=== PATIENT | female | born 1975 | race African-American/Black ===

== ENCOUNTER 2017-11-16 13:03 | Outpatient (CLI) | payer MEDICARE ==
--- NOTE | 2017-11-16 13:30 | RAD ---
CHEST TWO VIEWS: HISTORY: Dyspnea. COMPARISON: 03/08/2015 FINDINGS: The cardiac silhouette and pulmonary vasculature are unremarkable. The mediastinum is midline. Ther e is no confluent air space consolidation, pneumothorax, or pleural fluid evident. IMPRESSION: No active cardiopulmonary abnormalities demonstrated. POS: [facility]
== END 2017-11-16 13:04 | disposition home or self-care (01) ==
LOC: RAD 13:03
PROVIDERS: ATTEND Internal Medicine Pulmonary Disease
DX: R06.00 Dyspnea, unspecified (principal)
CPT/HCPCS: 71046

== ENCOUNTER 2017-11-26 19:30 | Outpatient (CLI) | payer MEDICARE | END 2017-11-26 19:31 | disposition home or self-care (01) | LOC: SLEEPLAB 19:30 | PROVIDERS: ATTEND Internal Medicine Pulmonary Disease | DX: G47.33 Obstructive sleep apnea (adult) (pediatric) (principal); G31.84 Mild cognitive impairment of uncertain or unknown etiology; R53.83 Other fatigue; F31.9 Bipolar disorder, unspecified; E66.9 Obesity, unspecified; K21.9 Gastro-esophageal reflux disease without esophagitis; R06.83 Snoring; I10 Essential (primary) hypertension | CPT/HCPCS: 95810 ==

== ENCOUNTER 2017-12-16 20:30 | Outpatient (CLI) | payer MEDICARE | END 2017-12-16 20:31 | disposition home or self-care (01) | LOC: SLEEPLAB 20:30 | PROVIDERS: ATTEND Internal Medicine Pulmonary Disease | DX: G47.33 Obstructive sleep apnea (adult) (pediatric) (principal); F31.9 Bipolar disorder, unspecified; E66.9 Obesity, unspecified; K21.9 Gastro-esophageal reflux disease without esophagitis | CPT/HCPCS: 95811 ==

== ENCOUNTER 2018-10-10 19:09 | Emergency (ER) | payer MEDICARE ==
[2018-10-10 19:51] LABS: Bilirubin Negative (Negative); Blood, Urine Trace (Negative); Clarity TURBID (Clear); Glucose, Urine (Dipstick) Negative (Negative); Leukocyte Large (Negative); Nitrite Negative (Negative); Protein, Urine (Dipstick) Trace mg/dL (Neg-Trace); Specific Gravity, Urine 1.024 (1.002-1.036)
[2018-10-10 19:53] LABS: Bacteria/HPF 3+ HPF (None Seen); Pathc Cast-AUWi Flag 2.32 (0-2.49); RBC/HPF 0-3 HPF (0-3); Squamous Epithelial 21-50 HPF (0-3)
[2018-10-10 19:56] LABS: Hyaline Casts/LPF 0-3 HYALINE CAST LPF (0-3 Hyaline)
[2018-10-10 20:12] LABS: #Eosinphils 0.2 thou/uL (0.0-0.7); #Lymphocytes 2.4 thou/uL (1.20-3.40); #Monocytes 0.5 thou/uL (0.11-0.59); #Neutrophils 3.2 thou/uL (1.40-6.50); %Basophils 0.3 % (0.0-1.0); %Eosinophils 3.1 % (0.0-10.0); %Lymphocytes 38.3 % (21.0-51.0); %Monocytes 7.6 % (0.0-10.0); %Neutrophils 50.8 % (42.0-75.0); Hemoglobin 12.2 g/dL (12.0-16.0); Mean Corpuscular HGB CONC 32.9 g/dL (32.0-36.0); Mean Corpuscular Hemoglobin 26.3 pg (27.0-31.0); Mean Corpuscular Volume 80.2 fL (78.0-98.0); Mean Platelet Volume 6.9 fL (7.4-10.4); Platelet Count 345 thou/uL (130-400); RBC Distribution Width 14.1 % (11.5-14.5); Red Blood Cell (RBC) Count 4.65 mill/uL (4.20-5.40); White Blood Cell (WBC) Count 6.3 thou/uL (4.8-10.8)
[2018-10-10 20:27] LABS: ALT (SGPT) 14 U/L (8-55); AST (SGOT) 15 U/L (5-34); Albumin 3.9 g/dL (3.5-5.0); Alkaline Phosphatase 90 U/L (40-150); Anion Gap 13 mmol/L (10-20); BUN (Urea Nitrogen) 12 mg/dL (7.0-18.7); Bilirubin, Total Less than 0.2 mg/dL (0.2-1.2); Calc. Creatinine Clearance 0 mL/min (70-130); Calcium 9.6 mg/dL (7.8-10.44); Carbon Dioxide 25 mmol/L (22-29); Chloride 107 mmol/L (98-107); Estimated GFR-MDRD Greater than 90; Globulin 3.4 g/dL (2.4-3.5); Glucose 123 mg/dL (70-105); Potassium 3.8 mmol/L (3.5-5.1); Protein, Total 7.3 g/dL (6.0-8.3); Sodium 141 mmol/L (136-145)
== END 2018-10-10 20:15 | disposition home or self-care (01) ==
LOC: ERS 19:09
DX: N39.0 Urinary tract infection, site not specified (principal); J45.909 Unspecified asthma, uncomplicated; F31.9 Bipolar disorder, unspecified; F20.9 Schizophrenia, unspecified; Z79.899 Other long term (current) drug therapy
CPT/HCPCS: 36415; 80053; 81003; 81015; 85025; 99284

== ENCOUNTER 2018-10-28 07:46 | Emergency (ER) | payer MEDICARE, SELFPAY ==
[2018-10-28] MEDS ORDERED: Ondansetron PF 4 MG/2 ML Vial ONE (08:04)
[2018-10-28] MEDS ORDERED: Ketorolac Tromethamine 30 MG/ML VIAL ONE (08:04)
[2018-10-28 08:22] LABS: #Eosinphils 0.1 thou/uL (0.0-0.7); #Lymphocytes 2.6 thou/uL (1.20-3.40); #Monocytes 0.4 thou/uL (0.11-0.59); #Neutrophils 3.4 thou/uL (1.40-6.50); %Basophils 0.5 % (0.0-1.0); %Eosinophils 1.4 % (0.0-10.0); %Lymphocytes 40.2 % (21.0-51.0); %Monocytes 6.1 % (0.0-10.0); %Neutrophils 51.8 % (42.0-75.0); Hemoglobin 13.1 g/dL (12.0-16.0); Mean Corpuscular Volume 78.9 fL (78.0-98.0); Mean Platelet Volume 7.2 fL (7.4-10.4); Platelet Count 381 thou/uL (130-400); RBC Distribution Width 14.3 % (11.5-14.5); Red Blood Cell (RBC) Count 5.03 mill/uL (4.20-5.40); White Blood Cell (WBC) Count 6.5 thou/uL (4.8-10.8)
[2018-10-28 08:44] LABS: ALT (SGPT) 17 U/L (8-55); AST (SGOT) 16 U/L (5-34); Albumin 4.3 g/dL (3.5-5.0); Alkaline Phosphatase 100 U/L (40-150); Anion Gap 13 mmol/L (10-20); BUN (Urea Nitrogen) 13 mg/dL (7.0-18.7); Bilirubin, Total 0.3 mg/dL (0.2-1.2); Calc. Creatinine Clearance 0 mL/min (70-130); Calcium 10.6 mg/dL (7.8-10.44); Carbon Dioxide 24 mmol/L (22-29); Chloride 104 mmol/L (98-107); Estimated GFR-MDRD 80; Globulin 3.8 g/dL (2.4-3.5); Glucose 130 mg/dL (70-105); Lipase 18 U/L (8-78); Potassium 4.2 mmol/L (3.5-5.1); Protein, Total 8.1 g/dL (6.0-8.3); Sodium 137 mmol/L (136-145)
--- NOTE | 2018-10-28 09:26 | CT ---
CT OF ABDOMEN AND PELVIS: DATE: 10/28/2018. COMPARISON: 06/22/2018. HISTORY: Abdominal pain with vomiting and diarrhea. TECHNIQUE: Axial CT imaging at 5 mm intervals from lung bases through pubic symphysis with IV contrast. Coronal reformatted imaging obtained. FINDINGS: The lack of oral contrast limits assessment of the bowel. The imaged lung bases appear unremarkable. There is no free intraperitoneal air. There are cholecystectomy clips present. The liver, spleen, pancreas, adrenal glands, and kidneys appear grossly unremarkable. There is a rim enhancing low density centrally low density structure measuring 1.3 cm in the left hem ipelvis, likely ovarian/adnexal in nature. The uterus is nonvisualized suggesting surgical absence. There is diverticulosis of the descending colon. The appendix appears normal. No evidence for a large or small bowel obstruction. Small sliding-type hiatal hernia. There is small volume fluid within the stomach. There is fluid seen within multiple nondilated loops of small bowel. Thee is fecal material seen in mid small bowel on axial image 51, nonspecific. There is no acute osseous abnormality seen. There i s lower lumbar spine facet hypertrophic change. IMPRESSION: Fluid is seen within nondilated small bowel and in the stomach. There is probable small volume fecal material within nondilated small bowel within the mid abdomen. Findings can be seen on the basis of ileus or early obstructive process. No evidence for a high-grade small bowel obstruction seen at th is point, and there is no free intraperitoneal air or evidence for appendicitis. If symptoms persist , followup imaging advised. POS: [facility]
[2018-10-28] MEDS ORDERED: Fentanyl 100 MCG/2 ML VIAL ONE (09:52)
[2018-10-28] MEDS ORDERED: ISOVUE-370 76%-LOCM 1 ML ONE (11:31)
== END 2018-10-28 11:20 | disposition home or self-care (01) ==
LOC: ERS 07:46
DX: R10.9 Unspecified abdominal pain (principal); F31.9 Bipolar disorder, unspecified; F25.9 Schizoaffective disorder, unspecified; J45.909 Unspecified asthma, uncomplicated; Z79.899 Other long term (current) drug therapy
CPT/HCPCS: 74177; 80053; 83690; 85025; 96361; 96374; 96375; J1885; J2405; J3010

== ENCOUNTER 2019-05-17 21:30 | Emergency (ER) | payer MEDICARE ==
[2019-05-17 22:07] LABS: Bilirubin Negative (Negative); Blood, Urine Trace (Negative); Clarity Clear (Clear); Glucose, Urine (Dipstick) Normal (Negative); Leukocyte Negative Leu/uL (Negative); Nitrite Negative (Negative); Protein, Urine (Dipstick) 10 mg/dL (Neg-Trace); RBC/HPF 0-3 HPF (0-3); Squamous Epithelial 0-3 HPF (0-3); Urobilinogen Normal mg/dL (Less than 2); WBC/HPF 0-3 HPF (0-3)
[2019-05-17 22:09] LABS: Bacteria/HPF 1+ HPF (None Seen)
[2019-05-17 22:11] LABS: #Eosinphils 0.2 thou/uL (0.0-0.7); #Lymphocytes 2.4 thou/uL (1.20-3.40); #Monocytes 0.8 thou/uL (0.11-0.59); %Basophils 0.2 % (0.0-1.0); %Eosinophils 1.9 % (0.0-10.0); %Lymphocytes 28.5 % (21.0-51.0); %Monocytes 9.8 % (0.0-10.0); %Neutrophils 59.7 % (42.0-75.0); Hemoglobin 12.2 g/dL (12.0-16.0); Mean Corpuscular HGB CONC 33.1 g/dL (32.0-36.0); Mean Corpuscular Hemoglobin 26.3 pg (27.0-31.0); Mean Corpuscular Volume 79.4 fL (78.0-98.0); Mean Platelet Volume 7.2 fL (7.4-10.4); Platelet Count 367 thou/uL (130-400); Red Blood Cell (RBC) Count 4.63 mill/uL (4.20-5.40); White Blood Cell (WBC) Count 8.3 thou/uL (4.8-10.8)
--- NOTE | 2019-05-17 22:13 | RAD ---
TWO VIEWS CHEST: 05/17/19 HISTORY: Asthma attack, cough. FINDINGS: Lungs are clear. Heart and mediastinal contours are unremarkable. IMPRESSION: No acute findings. POS: [facility]
[2019-05-17] MEDS ORDERED: Ondansetron PF 4 MG/2 ML Vial ONE (22:22)
[2019-05-17 22:40] LABS: ALT (SGPT) 13 U/L (8-55); AST (SGOT) 12 U/L (5-34); Albumin 4.2 g/dL (3.5-5.0); Alkaline Phosphatase 96 U/L (40-150); Anion Gap 13 mmol/L (10-20); BUN (Urea Nitrogen) 12 mg/dL (7.0-18.7); Bilirubin, Total 0.2 mg/dL (0.2-1.2); Calc. Creatinine Clearance 0 mL/min (70-130); Calcium 10.1 mg/dL (7.8-10.44); Carbon Dioxide 26 mmol/L (22-29); Chloride 102 mmol/L (98-107); Estimated GFR-MDRD 90; Globulin 3.9 g/dL (2.4-3.5); Glucose 92 mg/dL (70-105); Lipase 17 U/L (8-78); Potassium 4.2 mmol/L (3.5-5.1); Protein, Total 8.1 g/dL (6.0-8.3); Sodium 137 mmol/L (136-145)
--- NOTE | 2019-05-17 23:49 | CT ---
CT ABDOMEN AND PELVIS: 05/17/19 COMPARISON: 10/28/18. HISTORY: Abdominal pain. TECHNIQUE: Axial CT imaging at 5 mm intervals from lung bases through pubic symphysis with IV contrast. Coronal reformatted imaging obtained. FINDINGS: The imaged lung bases are unremarkable. No free intraperitoneal air or fluid is seen. Cholecystectomy clips are present. The liver, spleen, pancreas, adrenal glands, and kidneys are unremarkable. There is diverticulosis of the sigmoid colon and descending colon with no evidence for diverticulitis . No evidence for bowel inflammatory change or obstruction. The appendix is normal. The vascular structures of the abdomen and pelvis are unremarkable. No lymphadenopathy is noted withi n the abdomen or pelvis. Review of the osseous structures demonstrates no acute findings. IMPRESSION: No acute findings. POS: [facility]
[2019-05-18] MEDS ORDERED: Ketorolac Tromethamine 30 MG/ML VIAL ONE (00:01)
== END 2019-05-18 00:46 | disposition home or self-care (01) ==
LOC: ERS 21:30
DX: R10.32 Left lower quadrant pain (principal); J20.9 Acute bronchitis, unspecified; R11.2 Nausea with vomiting, unspecified; R10.12 Left upper quadrant pain; J45.909 Unspecified asthma, uncomplicated; F31.9 Bipolar disorder, unspecified; F25.9 Schizoaffective disorder, unspecified
CPT/HCPCS: 36415; 71046; 74177; 80053; 81003; 81015; 83690; 85025; 96361; 96374; 96375; J1885; J2405

== ENCOUNTER 2019-08-22 20:00 | Emergency (ER) | payer MEDICARE | END 2019-08-22 20:47 | disposition left against medical advice (07) | LOC: ERS 20:00 | DX: Z53.21 Procedure and treatment not carried out due to patient leaving prior to being seen by health care provider (principal) ==

== ENCOUNTER 2019-11-09 12:40 | Outpatient (CLI) | payer MEDICARE ==
--- NOTE | 2019-11-09 15:47 | MMO ---
Bilateral MAMMO Bilat Screen [facility]. CLINICAL HISTORY: Patient is 44 years old and is seen for screening. The patient has the following family history of breast cancer: mother, malignant (generic). The patient has no personal history of cancer. The patient has a history of bilateral Breast reduction in 1996 - benign. VIEWS: The views performed were: bilateral mediolateral oblique with tomosynthesis; bilateral craniocaudal with tomosynthesis; left craniocaudal; and right mediolateral oblique. FILMS COMPARED: The present examination has been compared to prior imaging studies performed at [facility] on 09/22/2016 and 11/07/2018. This study has been interpreted with the assistance of computer-aided detection. MAMMOGRAM FINDINGS: The breasts are almost entirely fat. There are benign appearing calcifications seen in both breasts. There are no suspicious masses, suspicious calcifications, or new areas of architectural distortion. IMPRESSION: THERE IS NO MAMMOGRAPHIC EVIDENCE OF MALIGNANCY. A ROUTINE FOLLOW-UP MAMMOGRAM IN 1 YEAR IS RECOMMENDED. THE RESULTS OF THIS EXAM WERE SENT TO THE PATIENT. ACR BI-RADS Category 2 - Benign finding MAMMOGRAPHY NOTE: 1. A negative mammogram report should not delay a biopsy if a dominant of clinically suspicious mass is present. 2. Approximately 10% to 15% of breast cancers are not detected by mammography. 3. Adenosis and dense breasts may obscure an underlying neoplasm. Reported by: HELEN PATE MD Electonically Signed: [id number]
== END 2019-11-09 12:41 | disposition home or self-care (01) ==
LOC: BICMAMMO 12:40
PROVIDERS: ATTEND Family Medicine
DX: Z12.31 Encounter for screening mammogram for malignant neoplasm of breast (principal); Z80.3 Family history of malignant neoplasm of breast; Z98.890 Other specified postprocedural states
CPT/HCPCS: 77063; 77067

== ENCOUNTER 2020-06-25 10:29 | Outpatient (CLI) | payer MEDICARE ==
--- NOTE | 2020-06-25 10:41 | RAD ---
EXAM: Chest PA and lateral: HISTORY: Pneumonia COMPARISON: 05/17/2019 FINDINGS: Heart: Normal cardiac silhouette Aorta: Unremarkable Pulmonary vessels: Normal Costophrenic angles: Costophrenic angles are clear. Lungs: No consolidation or masses. Pneumothorax: No pneumothorax Osseous structures: No osseous abnormalities IMPRESSION: No acute cardiopulmonary process.
== END 2020-06-25 10:30 | disposition home or self-care (01) ==
LOC: BICRAD 10:29
PROVIDERS: ATTEND Family Medicine
DX: J18.9 Pneumonia, unspecified organism (principal)
CPT/HCPCS: 71046

== ENCOUNTER 2020-08-15 12:55 | Outpatient (CLI) | payer MEDICARE ==
--- NOTE | 2020-08-15 13:24 | RAD ---
EXAM: Chest PA and lateral: HISTORY: Dyspnea COMPARISON: 06/25/2020 FINDINGS: Heart: Normal cardiac silhouette Aorta: Unremarkable Pulmonary vessels: Normal Costophrenic angles: Costophrenic angles are clear. Lungs: No consolidation or masses. Pneumothorax: No pneumothorax Osseous structures: No osseous abnormalities IMPRESSION: No acute cardiopulmonary process.
== END 2020-08-15 12:56 | disposition home or self-care (01) ==
LOC: BICRAD 12:55
PROVIDERS: ATTEND Internal Medicine Pulmonary Disease
DX: R06.00 Dyspnea, unspecified (principal)
CPT/HCPCS: 71046

== ENCOUNTER 2021-06-27 22:36 | Inpatient (IN) | payer MEDICARE ==
[2021-06-28 00:55] VITALS: BMI 38.4
[2021-06-28] MEDS ORDERED: Ondansetron ODT 4 MG TAB PO PRN (01:12)
[2021-06-28] MEDS ORDERED: Acetaminophen 650 MG Suppository PR PRN (01:12)
[2021-06-28] MEDS ORDERED: Dextrose 50% Abboject 50 ML SYRINGE SLOW IVP PRN (01:40)
[2021-06-28] MEDS ORDERED: Dextrose 5% in Water 1,000 ML IV PRN (01:40)
[2021-06-28] MEDS ORDERED: HumaLOG 300 UNITS/3 ML VIAL SC PRN ×2 (01:40)
[2021-06-28] MEDS ORDERED: Piperacillin/Tazobactam 3.375 GM in Sodium Chloride 0.9% 100 ML IVPB SCH ×2 (02:00→10:00)
[2021-06-28] MEDS: Sodium Chloride 0.9% 1,000 ML IV SCH ×3 (02:05→21:27)
[2021-06-28] MEDS: Piperacillin/Tazobactam 3.375 GM in Sodium Chloride 0.9% 100 ML IVPB SCH ×3 (05:41→21:28)
[2021-06-28 05:55] LABS: #Eosinphils 0.1 thou/uL (0.0-0.7); #Lymphocytes 2.5 thou/uL (1.20-3.40); #Monocytes 0.8 thou/uL (0.11-0.59); #Neutrophils 8.3 thou/uL (1.40-6.50); %Basophils 0.1 % (0.0-1.0); %Eosinophils 1.2 % (0.0-10.0); %Lymphocytes 21.1 % (21.0-51.0); %Monocytes 6.7 % (0.0-10.0); %Neutrophils 70.9 % (42.0-75.0); Hemoglobin 10.7 g/dL (12.0-16.0); Mean Corpuscular HGB CONC 31.9 g/dL (32.0-36.0); Mean Corpuscular Hemoglobin 25.8 pg (27.0-31.0); Mean Corpuscular Volume 80.9 fL (78.0-98.0); Mean Platelet Volume 7.4 fL (7.4-10.4); Platelet Count 374 thou/uL (130-400); RBC Distribution Width 15.3 % (11.5-14.5); Red Blood Cell (RBC) Count 4.13 mill/uL (4.20-5.40); White Blood Cell (WBC) Count 11.6 thou/uL (4.8-10.8)
[2021-06-28 06:03] LABS: Hemoglobin A1c 6.8 % (4.0-6.0)
[2021-06-28 06:17] LABS: Anion Gap 13 mmol/L (10-20); BUN (Urea Nitrogen) 10 mg/dL (7.0-18.7); Calc. Creatinine Clearance 131 mL/min (70-130); Calcium 9.3 mg/dL (7.8-10.44); Carbon Dioxide 22 mmol/L (22-29); Chloride 104 mmol/L (98-107); Glucose 133 mg/dL (70-105); Potassium 4.2 mmol/L (3.5-5.1); Sodium 135 mmol/L (136-145)
[2021-06-28] MEDS: Pantoprazole 40 MG VIAL IVP SCH (08:10)
[2021-06-28] MEDS ORDERED: Iopamidol 370 76% 50 ML VIAL FS ONE (11:37)
[2021-06-28] MEDS ORDERED: Iopamidol-370 76% 500 ML 1 ML ONE (11:37)
[2021-06-28] MEDS: Acetaminophen 325 MG TAB PO PRN (16:21)
[2021-06-29] MEDS: Acetaminophen 325 MG TAB PO PRN ×2 (03:48→20:49)
[2021-06-29] MEDS: Ondansetron PF 4 MG/2 ML Vial IVP PRN (03:48)
[2021-06-29] MEDS: Piperacillin/Tazobactam 3.375 GM in Sodium Chloride 0.9% 100 ML IVPB SCH ×3 (04:57→20:40)
[2021-06-29] MEDS: Pantoprazole 40 MG VIAL IVP SCH (08:57)
[2021-06-29] MEDS: Ketorolac Tromethamine 30 MG/ML VIAL IVP PRN (14:57)
[2021-06-29] MEDS: Sodium Chloride 0.9% 1,000 ML IV SCH ×2 (17:31→18:58)
[2021-06-30] MEDS: Ondansetron PF 4 MG/2 ML Vial IVP PRN ×2 (04:55→21:10)
[2021-06-30] MEDS: Acetaminophen 325 MG TAB PO PRN (04:55)
[2021-06-30] MEDS: Piperacillin/Tazobactam 3.375 GM in Sodium Chloride 0.9% 100 ML IVPB SCH ×3 (04:56→21:06)
[2021-06-30] MEDS: Sodium Chloride 0.9% 1,000 ML IV SCH ×3 (05:48→21:06)
[2021-06-30] MEDS: Pantoprazole 40 MG VIAL IVP SCH (08:38)
[2021-06-30 09:00] LABS: #Eosinphils 0.1 thou/uL (0.0-0.7); #Lymphocytes 2.5 thou/uL (1.20-3.40); #Monocytes 0.7 thou/uL (0.11-0.59); #Neutrophils 7.7 thou/uL (1.40-6.50); %Eosinophils 1.3 % (0.0-10.0); %Lymphocytes 22.6 % (21.0-51.0); %Monocytes 6.1 % (0.0-10.0); Hemoglobin 10.5 g/dL (12.0-16.0); Mean Corpuscular HGB CONC 32.6 g/dL (32.0-36.0); Mean Corpuscular Hemoglobin 26.1 pg (27.0-31.0); Mean Corpuscular Volume 80.1 fL (78.0-98.0); Mean Platelet Volume 7.1 fL (7.4-10.4); Platelet Count 429 thou/uL (130-400); RBC Distribution Width 15.1 % (11.5-14.5); Red Blood Cell (RBC) Count 4.01 mill/uL (4.20-5.40)
[2021-06-30] MEDS: Ketorolac Tromethamine 30 MG/ML VIAL IVP PRN ×2 (12:52→21:10)
[2021-07-01] MEDS: Piperacillin/Tazobactam 3.375 GM in Sodium Chloride 0.9% 100 ML IVPB SCH (05:34)
[2021-07-01] MEDS: Pantoprazole 40 MG VIAL IVP SCH (08:01)
[2021-07-01] MEDS ORDERED: Fluticasone Propionate HFA 110 MCG AER INH PRN (09:10)
[2021-07-01] MEDS ORDERED: Non-Formulary Item 1 EACH (Albuterol Sulfate 200 PUFF Aer) PO PRN (09:10)
[2021-07-01] MEDS ORDERED: Albuterol Sulfate 1.25 MG/3 ML NEB NEB PRN (09:10)
[2021-07-01] MEDS ORDERED: Albuterol 200 PUFF (6.7GM INHALER) INH PRN (09:20)
[2021-07-01] MEDS: Acetaminophen 325 MG TAB PO PRN (11:58)
[2021-07-01 12:21] VITALS: BP 156/87; TEMP 98.7
[2021-07-01] MEDS ORDERED: PERPHENAZINE 4 MG PO SCH (21:00)
[2021-07-01] MEDS ORDERED: Perphenazine 2 MG TAB PO SCH (21:00)
[2021-07-01] MEDS ORDERED: lamoTRIgine 25 MG TAB PO SCH (21:00)
[2021-07-02] MEDS ORDERED: metFORMIN 500 MG TAB PO SCH ×2 (09:00)
[2021-07-02] MEDS ORDERED: busPIRone HCl 5 MG TAB PO SCH (09:00)
[2021-07-02] MEDS ORDERED: Non-Formulary Item 1 EACH (Buspirone Hcl [Buspirone Hcl] 7.5 MG Tablet) PO SCH (09:00)
[2021-07-02] MEDS ORDERED: Citalopram 10 MG TAB PO SCH (09:00)
== END 2021-07-01 12:34 | disposition home or self-care (01) | DRG 373 ==
LOC: SURG A 06-28 00:16
PROVIDERS: ADMIT Student in an Organized Health Care Education/Training Program; ATTEND Internal Medicine
DX: K65.1 Peritoneal abscess (principal); N83.8 Other noninflammatory disorders of ovary, fallopian tube and broad ligament; F25.9 Schizoaffective disorder, unspecified; E11.9 Type 2 diabetes mellitus without complications; J45.909 Unspecified asthma, uncomplicated; Z20.822 Contact with and (suspected) exposure to COVID-19; E66.01 Morbid (severe) obesity due to excess calories; Z88.5 Allergy status to narcotic agent; Z79.899 Other long term (current) drug therapy; Z79.51 Long term (current) use of inhaled steroids; Z79.84 Long term (current) use of oral hypoglycemic drugs; Z90.710 Acquired absence of both cervix and uterus; Z68.38 Body mass index [BMI] 38.0-38.9, adult; Z90.49 Acquired absence of other specified parts of digestive tract; Z98.51 Tubal ligation status; Z84.1 Family history of disorders of kidney and ureter; Z82.49 Family history of ischemic heart disease and other diseases of the circulatory system; Z83.3 Family history of diabetes mellitus
CPT/HCPCS: 36415; 36416; 74177; 80048; 83036; 85025; 86304; C9113; J1885; J2405; J2543; J3490; J7050; Q0162; Q9967

== ENCOUNTER 2021-08-13 21:17 | Inpatient (IN) | payer MEDICARE ==
[2021-08-13 22:40] VITALS: BMI 42.5
[2021-08-13] MEDS ORDERED: Acetaminophen 650 MG Suppository PR PRN (23:35)
[2021-08-13] MEDS ORDERED: Ondansetron PF 4 MG/2 ML Vial IVP PRN (23:35)
[2021-08-13] MEDS ORDERED: Ondansetron ODT 4 MG TAB PO PRN (23:35)
[2021-08-14] MEDS ORDERED: HumaLOG 300 UNITS/3 ML VIAL SC PRN ×2 (00:21)
[2021-08-14] MEDS ORDERED: Dextrose 50% Abboject 50 ML SYRINGE SLOW IVP PRN (00:21)
[2021-08-14] MEDS ORDERED: Dextrose 5% in Water 1,000 ML IV PRN (00:21)
[2021-08-14] MEDS ORDERED: Sodium Chloride 0.9% 1,000 ML IV SCH (00:45)
[2021-08-14] MEDS ORDERED: Piperacillin/Tazobactam 3.375 GM in Sodium Chloride 0.9% 100 ML IVPB SCH ×2 (02:00→06:00)
[2021-08-14] MEDS: Piperacillin/Tazobactam 3.375 GM in Sodium Chloride 0.9% 100 ML IVPB SCH ×3 (05:35→21:31)
[2021-08-14] MEDS: Acetaminophen 325 MG TAB PO PRN ×2 (05:36→18:51)
[2021-08-14 06:03] LABS: #Eosinphils 0.1 thou/uL (0.0-0.7); #Monocytes 0.5 thou/uL (0.11-0.59); #Neutrophils 8.2 thou/uL (1.40-6.50); %Basophils 0.1 % (0.0-1.0); %Eosinophils 0.9 % (0.0-10.0); %Lymphocytes 18.3 % (21.0-51.0); %Monocytes 4.8 % (0.0-10.0); %Neutrophils 75.9 % (42.0-75.0); Mean Corpuscular HGB CONC 30.1 g/dL (32.0-36.0); Mean Corpuscular Hemoglobin 23.6 pg (27.0-31.0); Mean Corpuscular Volume 78.5 fL (78.0-98.0); Mean Platelet Volume 6.5 fL (7.4-10.4); Platelet Count 484 thou/uL (130-400); RBC Distribution Width 15.1 % (11.5-14.5); Red Blood Cell (RBC) Count 3.81 mill/uL (4.20-5.40); White Blood Cell (WBC) Count 10.8 thou/uL (4.8-10.8)
[2021-08-14 06:23] LABS: Anion Gap 14 mmol/L (10-20); BUN (Urea Nitrogen) 7 mg/dL (7.0-18.7); Calc. Creatinine Clearance 135 mL/min (70-130); Carbon Dioxide 25 mmol/L (22-29); Chloride 106 mmol/L (98-107); Glucose 153 mg/dL (70-105); Sodium 141 mmol/L (136-145)
[2021-08-14] MEDS ORDERED: Enoxaparin Sodium 40 MG/0.4 ML SYRINGE SC SCH ×2 (09:00→21:00)
[2021-08-14] MEDS: Sodium Chloride 0.9% 1,000 ML IV SCH (13:00)
[2021-08-14] MEDS ORDERED: Albuterol Sulfate 1.25 MG/3 ML NEB NEB PRN (17:14)
[2021-08-14] MEDS ORDERED: Mometasone 100 MCG/PUFF (1 INHALER) INH PRN (17:24)
[2021-08-14] MEDS ORDERED: Citalopram 10 MG TAB PO SCH (21:00)
[2021-08-14] MEDS ORDERED: busPIRone HCl 5 MG TAB PO SCH (21:00)
[2021-08-14] MEDS: Perphenazine 2 MG TAB PO SCH (21:31)
[2021-08-14] MEDS: lamoTRIgine 25 MG TAB PO SCH (21:31)
[2021-08-14] MEDS ORDERED: HYDROcodone/Acetaminophen 5/325 mg Tablet PO PRN (22:52)
[2021-08-15] MEDS: Piperacillin/Tazobactam 3.375 GM in Sodium Chloride 0.9% 100 ML IVPB SCH ×2 (05:41→14:15)
[2021-08-15 07:28] VITALS: TEMP 98.5
[2021-08-15] MEDS: lamoTRIgine 25 MG TAB PO SCH (08:56)
[2021-08-15] MEDS: Acetaminophen 325 MG TAB PO PRN (08:56)
[2021-08-15] MEDS: Sodium Chloride 0.9% 1,000 ML IV SCH (08:59)
[2021-08-15] MEDS: Perphenazine 2 MG TAB PO SCH (09:44)
[2021-08-15 11:02] VITALS: BP 112/70
== END 2021-08-15 15:26 | disposition home or self-care (01) | DRG 872 ==
LOC: SURG B 21:17 → UNDOADMOB 21:17 → SURG B 22:16 → OBSVTOIN 23:35
PROVIDERS: ADMIT Student in an Organized Health Care Education/Training Program; ATTEND Internal Medicine
DX: A41.9 Sepsis, unspecified organism (principal); Z68.41 Body mass index [BMI] 40.0-44.9, adult; N13.30 Unspecified hydronephrosis; E66.01 Morbid (severe) obesity due to excess calories; D30.22 Benign neoplasm of left ureter; N70.93 Salpingitis and oophoritis, unspecified; N73.9 Female pelvic inflammatory disease, unspecified; F25.9 Schizoaffective disorder, unspecified; E11.9 Type 2 diabetes mellitus without complications; I10 Essential (primary) hypertension; J45.909 Unspecified asthma, uncomplicated; Z88.5 Allergy status to narcotic agent; Z79.84 Long term (current) use of oral hypoglycemic drugs; Z79.51 Long term (current) use of inhaled steroids; Z79.899 Other long term (current) drug therapy; Z90.710 Acquired absence of both cervix and uterus; Z98.51 Tubal ligation status
CPT/HCPCS: 36415; 36416; 80048; 85025; J1650; J2543; J3490; J7050; Q0175

== ENCOUNTER 2021-09-18 10:54 | Outpatient (CLI) | payer MEDICARE ==
[2021-09-18 11:38] LABS: Estimated GFR-MDRD - POC Greater than 90
== END 2021-09-18 10:55 | disposition home or self-care (01) ==
LOC: SCSMRI 10:54
DX: R19.00 Intra-abdominal and pelvic swelling, mass and lump, unspecified site (principal); R68.81 Early satiety; Z80.41 Family history of malignant neoplasm of ovary; K59.09 Other constipation
CPT/HCPCS: 72197; 82565

== ENCOUNTER 2022-06-29 11:54 | Outpatient (CLI) | payer MEDICARE | END 2022-06-29 11:55 | disposition home or self-care (01) | LOC: BICMAMMO 11:54 | PROVIDERS: ATTEND Family Medicine | DX: Z12.31 Encounter for screening mammogram for malignant neoplasm of breast (principal); Z80.3 Family history of malignant neoplasm of breast; Z98.890 Other specified postprocedural states | CPT/HCPCS: 77063; 77067 ==

== ENCOUNTER 2025-05-13 16:31 | Inpatient (IN) | payer MEDICARE, BC ==
[~2025-05-13 16:31] MED LIST: Iopamidol-370 76% 500 ML MDV (1 ML CHARGE) ONE
[2025-05-13 17:35] LABS: #Basophils Less than 0.03 10x3/uL (0.0-0.2); #Eosinophils 0.14 10x3/uL (0.0-0.7); #Monocytes 0.40 10x3/uL (0.11-0.59); #Neutrophils 4.37 10x3/uL (1.40-6.50); %Basophils 0.3 % (0.0-1.0); %Eosinophils 2.1 % (0.0-10.0); %Lymphocytes 27.6 % (21.0-51.0); %Monocytes 5.9 % (0.0-10.0); %Neutrophils 64.0 % (42.0-75.0); Hematocrit 37.6 % (36.0-47.0); Hemoglobin 12.1 g/dL (12.0-16.0); Mean Corpuscular Hemoglobin 25.6 pg (27.0-31.0); Mean Corpuscular Volume 79.7 fL (78.0-98.0); Platelet Count 342 10x3/uL (130-400); Red Blood Cell (RBC) Count 4.72 mill/uL (4.20-5.40); White Blood Cell (WBC) Count 6.82 10x3/uL (4.8-10.8)
[2025-05-13 17:54] LABS: ALT (SGPT) 16 U/L (Less than 34); AST (SGOT) 18 U/L (11-34); Albumin 4.0 g/dL (3.1-4.5); Alkaline Phosphatase 111 U/L (40-110); Anion Gap 12 mmol/L (10-20); BUN (Urea Nitrogen) 10 mg/dL (9.8-20.1); Bilirubin, Total 0.2 mg/dL (0.3-1.2); Calc. Creatinine Clearance 0 mL/min (70-130); Calcium 9.7 mg/dL (7.8-10.44); Carbon Dioxide 23 mmol/L (22-29); Chloride 107 mmol/L (98-107); Globulin 3.9 g/dL (2.4-3.5); Glucose 165 mg/dL (70-105); Potassium 4.0 mmol/L (3.5-5.1); Sodium 138 mmol/L (136-145)
[2025-05-13 17:57] LABS: Troponin I Less than 0.010 ng/mL (< 0.028)
[2025-05-13] MEDS ORDERED: HYDROcodone/Acetaminophen 5/325 mg Tablet ONE (18:02)
[2025-05-13] MEDS ORDERED: Aspirin Chewable 81 MG TAB ONE (20:44)
[2025-05-13] MEDS ORDERED: Acetaminophen 325 MG TAB PO PRN (21:15)
[2025-05-13] MEDS ORDERED: Ondansetron PF 4 MG/2 ML Vial IVP PRN (21:15)
[2025-05-13] MEDS ORDERED: cloNIDine 0.1 MG TAB PO PRN (22:09)
[2025-05-13] MEDS ORDERED: Glucagon 1 MG/ML KIT IM PRN (23:08)
[2025-05-13] MEDS ORDERED: Dextrose 50% Abboject 50 ML SYRINGE SLOW IVP PRN (23:08)
[2025-05-13 23:21] VITALS: BMI 41.7
[2025-05-14 06:03] LABS: Anion Gap 15 mmol/L (10-20); BUN (Urea Nitrogen) 10 mg/dL (9.8-20.1); Calc. Creatinine Clearance 168 mL/min (70-130); Calcium 9.3 mg/dL (7.8-10.44); Carbon Dioxide 19 mmol/L (22-29); Chloride 107 mmol/L (98-107); Glucose 102 mg/dL (70-105); Potassium 4.3 mmol/L (3.5-5.1); Sodium 137 mmol/L (136-145)
[2025-05-14 07:35] LABS: #Basophils 0.03 10x3/uL (0.0-0.2); #Eosinophils 0.22 10x3/uL (0.0-0.7); #Monocytes 0.51 10x3/uL (0.11-0.59); #Neutrophils 3.07 10x3/uL (1.40-6.50); %Basophils 0.4 % (0.0-1.0); %Eosinophils 3.3 % (0.0-10.0); %Lymphocytes 42.0 % (21.0-51.0); %Monocytes 7.6 % (0.0-10.0); %Neutrophils 46.1 % (42.0-75.0); Hematocrit 36.7 % (36.0-47.0); Hemoglobin 11.7 g/dL (12.0-16.0); Mean Corpuscular Hemoglobin 25.8 pg (27.0-31.0); Mean Corpuscular Volume 80.8 fL (78.0-98.0); Platelet Count 270 10x3/uL (130-400); Red Blood Cell (RBC) Count 4.54 mill/uL (4.20-5.40); White Blood Cell (WBC) Count 6.67 10x3/uL (4.8-10.8)
[2025-05-14 08:50] LABS: Troponin I Less than 0.010 ng/mL (< 0.028)
[2025-05-14] MEDS: Enoxaparin 40 MG (0.4 mL) SYRINGE SC SCH (11:56)
[2025-05-14] MEDS: NIFEdipine XL 30 MG ER.TAB PO SCH (11:56)
[2025-05-14] MEDS: Mometasone 100 MCG/Formoterol 5 MCG 120 PUFF INHALER INH SCH (19:02)
[2025-05-14] MEDS: Aspirin 81 mg Enteric Coated Tablet PO SCH (20:22)
[2025-05-14] MEDS: lamoTRIgine 25 MG TAB PO SCH (20:22)
[2025-05-15] MEDS: NIFEdipine XL 60 MG ER.TAB PO SCH (11:43)
[2025-05-15 11:47] VITALS: BP 129/78; TEMP 97.5
== END 2025-05-15 15:09 | disposition home or self-care (01) | DRG 313 ==
LOC: ERS 16:31 → OBS 21:10 → OBSVTOIN 05-14 15:38
PROVIDERS: ADMIT Student in an Organized Health Care Education/Training Program; ATTEND Internal Medicine
DX: R07.89 Other chest pain (principal); J44.9 Chronic obstructive pulmonary disease, unspecified; I10 Essential (primary) hypertension; E11.9 Type 2 diabetes mellitus without complications; E78.5 Hyperlipidemia, unspecified; F31.9 Bipolar disorder, unspecified; J45.909 Unspecified asthma, uncomplicated; Z90.710 Acquired absence of both cervix and uterus; Z98.51 Tubal ligation status; Z98.890 Other specified postprocedural states; Z79.82 Long term (current) use of aspirin; Z79.899 Other long term (current) drug therapy
CPT/HCPCS: 36415; 36416; 71045; 74174; 78452; 80048; 80053; 83690; 83880; 84484; 85025; 85379; 93005; 93017; 94760; 96372; A9502; G0378; J1650; J2785; Q0162; Q0175; Q9967